=== PATIENT | male | born 1995 | race Caucasian/White ===

== ENCOUNTER 2017-02-13 16:01 | Emergency (ER) | END 2017-02-13 20:13 | disposition home or self-care (01) | DX: S30.0XXA Contusion of lower back and pelvis, initial encounter (principal); S50.01XA Contusion of right elbow, initial encounter; W11.XXXA Fall on and from ladder, initial encounter; Y92.9 Unspecified place or not applicable | CPT/HCPCS: 72128; 72131; 72170; 73080; Z7502; Z7610 ==